=== PATIENT | female | born 1970 | race African-American/Black ===

== ENCOUNTER 2018-04-10 08:16 | Outpatient (CLI) | payer OTHER ==
--- NOTE | 2018-04-10 09:55 | MMO ---
BILATERAL SCREENING MAMMOGRAMS: DATE: 04/10/18. HISTORY: A 48-year-old female patient presenting for screening mammography. This is the patient's baseline sc reening mammogram. No prior studies are available for comparison. History of prior bilateral breast augmentation. COMPARISON: None available. This study is also interpreted with the assistance of computer-aided detection. FINDINGS: There are bilateral symmetric retropectoral breast implants present. There is a heterogeneously dens e parenchymal pattern which may lower the sensitivity of mammography. No dominant mass or suspicious grouping of microcalcifications is seen in either breast. IMPRESSION: BI-RADS category 2, benign findings. Routine annual mammographic screening is recommended. BIRADS 2: Benign Finding(s) Routine annual screening mammography (for women over age 40) POS: [facility]
== END 2018-04-10 08:17 | disposition home or self-care (01) ==
LOC: SCSMAMMO 08:16
PROVIDERS: ATTEND Family Medicine
DX: Z12.31 Encounter for screening mammogram for malignant neoplasm of breast (principal)
CPT/HCPCS: 77067